=== PATIENT | male | born 1965 | race African-American/Black ===

== ENCOUNTER 2017-03-07 20:51 | Emergency (ER) | payer SELFPAY ==
[~2017-03-07] VITALS: Ht 175.3 cm; Wt 110.0 kg
[2017-03-07 20:53] VITALS: BP 167/83; PULSE 86; RESP 16; TEMP 100.2; O2SAT 96
[2017-03-07 21:08] VITALS: BP 140/79; PULSE 92; RESP 15; O2SAT 98
[2017-03-07] MEDS ORDERED: HYDR-3133 PO (22:01)
[2017-03-07] MEDS ORDERED: VALA1TAB PO (22:01)
--- NOTE | 2017-03-07 22:01 | PD ---
HPI Chief Complaint: Allergic/Adverse Reaction Time Seen by Provider: 21:07 Travel History International Travel<30 days: No Contact w/Intl Traveler<30days: No Traveled to known affect area: No History of Present Illness HPI This is a 52-year-old male who presents to the emergency department with rash that's been going on for 3 days, constant, worsening involving his face, abdomen , chest and arms, itchy, moderate severity. He denies any associated fevers, chills, shortness of breath, wheezing, vomiting or diarrhea. He says he's never had chickenpox before but he thinks he got the vaccine. He did start using Dial soap 2 weeks ago. PFS Past Medical History Medical History: Denies Significant Hx Past Surgical History Surgical History: No Previous Surgery Social History Alcohol Use: Yes (OCC) Tobacco Use: No Substance Use: No Allergies-Medications (Allergen,Severity, Reaction): Uncoded Allergies: ACKEE (Adverse Reaction, Intermediate, Nausea/Vomiting, 03/07/17) Reported Meds & Prescriptions Reported Meds & Active Scripts Active No Active Prescriptions or Reported Medications Review of Systems Except as stated in HPI: all other systems reviewed are Neg Physical Exam Narrative GENERAL:Well appearing, no acute distress SKIN: Lesions over the back arms and face that are vesicular, pustular and open sores at different stages concerning for varicella HEAD: Atraumatic. Normocephalic. EYES: Pupils equal and round. No injection or drainage. ENT: Moist mucous membranes NECK: Trachea midline. CARDIOVASCULAR: Regular rate and rhythm. No murmur appreciated. RESPIRATORY: Clear to auscultation. Breath sounds equal bilaterally. GASTROINTESTINAL: Abdomen soft, non-tender, nondistended. MUSCULOSKELETAL: No obvious deformities. NEUROLOGICAL: Awake and alert. No obvious cranial nerve deficits. Moving all extremities. PSYCHIATRIC: Appropriate mood and affect; insight and judgment normal. Data Data Last Documented VS Vital Signs Date Time Temp Pulse Resp B/P (MAP) Pulse Ox O2 Delivery O2 Flow Rate FiO2 03/07/17 21:08 92 15 140/79 (99) 98 Room Air 03/07/17 20:53 100.2 [facility] Medical Decision Making Medical Screen Exam Complete: Yes Emergency Medical Condition: Yes Interpretation(s) temperature is 100.2 Differential Diagnosis Varicella, allergic reaction, scabies, contact dermatitis Narrative Course This is a 52-year-old male who presents to the emergency department with a generalized rash which appears vesicular at different stages concerning for varicella. He also has a low-grade temperature of 100.2. He did have a recent new soap exposure. I think it's reasonable to treat him for varicella infection with valacyclovir. He was told that he is contagious and he should avoid people who are unvaccinated or non-immune to varicella. He is otherwise non-toxic appearing. Pt. will be discharged home. Diagnosis Primary Impression: Chicken pox Qualified Codes: B01.9 - Varicella without complication Patient Instructions: General Instructions Additional Instructions: If you develop high fevers, headache, confusion, shortness of breath, sweating, lightheadedness, dizziness or difficulty breathing return to the emergency department immediately. Complete your anti-viral medicine as prescribed. Med/Other Pt SpecificInfo: Prescription(s) given Scripts Hydroxyzine HCl (Hydroxyzine HCl) 25 Mg Tab 25 MG PO QID Y for ANXIETY, #15 TAB 0 Refills Prov: Brittaney Hicks MD 03/07/17 Valacyclovir (Valacyclovir) 1,000 Mg Tab 1000 MG PO TID for Mgmt Viral Infection for 7 Days, TAB 0 Refills Prov: Brittaney Hicks MD 03/07/17 Disposition: 01 DISCHARGE HOME Condition: Stable Brittaney Hicks MD Mar 07, 2017 22:01
[2017-03-07] MEDS ORDERED: hydrOXYzine HCL 50 MG/ML VIAL IM ONE (22:15)
[2017-03-11 03:51] LABS: VZV PCR RESULT >2000000 (<500 copies)
== END 2017-03-07 22:50 | disposition home or self-care (01) ==
LOC: NEPC 20:51
DX: B01.9 Varicella without complication (principal)
CPT/HCPCS: 87799; 96372; 99284; J3410